=== PATIENT | female | born 1975 | race Caucasian/White ===

== ENCOUNTER 2016-05-24 14:12 | Emergency (ER) | payer BC, MEDICAID ==
[2016-05-24 14:50] VITALS: BP 143/89
--- NOTE | 2016-05-24 17:42 | ED ---
Throat Pain/Nasal Congestion - HPI Summary HPI Summary: 41 F presents with dental pain in her 1st tooth. She states a week ago her filling feel out of her tooth and a day ago her tooth cracked. She was seen at an outpatient clinic and was told she needs to follow up with a dentist. They did not prescribe antibiotics at that time because she has just finished a course of flagyl and cipro for a uti and trichomonas. She states she is on a pain plan already. She denies any swelling around the eyes, chest pain, or SOB. - History of Current Complaint Chief Complaint: EDDentalPain Time Seen by Provider: 05/24/16 17:07 - Allergies/Home Medications Allergies/Adverse Reactions: Allergies Allergy/AdvReac Type Severity Reaction Status Date / Time Amoxicillin [From Augmentin] Allergy Rash Verified 06/19/14 16:19 Clavulanic Acid Allergy Rash Verified 06/19/14 16:19 [From Augmentin] PMH/Surg Hx/FS Hx/Imm Hx Endocrine/Hematology History: Denies: Hx Diabetes, Hx Thyroid Disease Cardiovascular History: Denies: Hx Hypertension Respiratory History: Reports: Hx Asthma Denies: Hx Chronic Obstructive Pulmonary Disease (COPD) GI History: Denies: Hx Ulcer - Surgical History Surgery Procedure, Year, and Place: umbilical hernia. tubal ligation. right shoulder injury/surgery. MRSA+ abscess on right hand about two years ago Infectious Disease History: No Infectious Disease History: Reports: Hx of Known/Suspected MRSA - Right hand years 4-5 years ago Denies: Hx Hepatitis, Hx Human Immunodeficiency Virus (HIV), Hx Shingles, Hx Tuberculosis, Hx Known/Suspected VRE, History Other Infectious Disease, Traveled Outside the [place] in Last 30 Days - Family History Known Family History: Negative: Cardiac Disease - Social History Alcohol Use: None Substance Use Type: Reports: Heroin, Marijuana, Synthetic Drugs Substance Use Comment - Amount & Last Used: almost two years since last used heroin and synthetic, still uses marijuana Smoking Status (MU): Light Every Day Tobacco Smoker Review of Systems Negative: Fever Positive: Dental Pain. Negative: Sore Throat, Ear Ache Negative: Chest Pain Negative: Shortness Of Breath All Other Systems Reviewed And Are Negative: Yes Physical Exam Triage Information Reviewed: Yes Vital Signs On Initial Exam: Initial Vitals Temp Pulse Resp BP Pulse Ox 98.0 F 94 16 143/89 100 05/24/16 14:49 05/24/16 14:49 05/24/16 14:49 05/24/16 14:49 05/24/16 14:49 Vital Signs Reviewed: Yes Appearance: Positive: Well-Appearing Skin: Positive: Warm, Dry Head/Face: Positive: Normal Head/Face Inspection Eyes: Positive: Normal, Conjunctiva Clear ENT: Positive: Normal ENT inspection, Pharynx normal, TMs normal Dental: Positive: Gross Decay/Caries @ - 1, Dental Fracture @ - 1, Other - part of the gum exposed were filling was, no abscess noted. Negative: Abscess @, Bleeding Neck: Positive: Supple, Nontender Respiratory/Lung Sounds: Positive: Clear to Auscultation, Breath Sounds Present Cardiovascular: Positive: Normal, RRR Procedures - Procedure Summary Procedure Summary: irrigated area, applied topical anaesthesia, applied cement to cracked tooth Diagnostics - Vital Signs Vital Signs Temp Pulse Resp BP Pulse Ox 05/24/16 14:49 98.0 F 94 16 143/89 100 - Laboratory Lab Statement: Any lab studies that have been ordered have been reviewed, and results considered in the medical decision making process. EENT Course/Dx - Course Course Of Treatment: 41 F presents with missing filling and cracked tooth in 1st tooth. No abscess noted on exam due to recent antibiotic use and the fact that nerve root is exposed will place cement on area, patient tolerate procedure well, placed on clindamycin on d/c, warned about signs of infection to return, patient agrees with plan - Differential Diagnoses Differential Diagnoses: Dental Abscess, Dental Caries, Other - dental fracture - Diagnoses Provider Diagnoses: Pain, dental Discharge - Discharge Plan Condition: Good Disposition: HOME Prescriptions: Clindamycin CAP* [Cleocin 150 MG CAP*] 450 mg PO TID #90 cap Patient Education Materials: Clindamycin (On the skin), Dental Caries (ED) Referrals: [facility] [Outside] Additional Instructions: Take antibiotics: 3 tablets three times a day for 10 days Use normal pain medication Avoid hard, crunchy food until seen by dentist Return to ED if develop fever, shortness of breath, pain with eye movement or swelling around eye Establish care with primary care physician and dentist follow up as soon as possible
== END 2016-05-24 18:09 | disposition home or self-care (01) ==
LOC: ED 14:12
DX: K08.89 Other specified disorders of teeth and supporting structures (principal); F17.200 Nicotine dependence, unspecified, uncomplicated
CPT/HCPCS: 99281